=== PATIENT | male | born 1980 | race Caucasian/White ===

== ENCOUNTER 2017-05-06 16:26 | Emergency (ER) | payer OTHER ==
[~2017-05-06] VITALS: Ht 175.3 cm; Wt 103.7 kg
[~2017-05-06 16:26] MED LIST: GOODY'S EX-STR1 EACH PO; OXAYDO5 MG PO; PEN-VEE K,VEET500 MG PO; [UNRECOGNIZED DRUG - OTHER] NS
[2017-05-06] MEDS ORDERED: MOTRIN600 MG PO (17:53)
[2017-05-06 18:14] VITALS: BP 171/90
== END 2017-05-06 18:23 | disposition home or self-care (01) ==
LOC: EME 16:26
DX: S39.012A Strain of muscle, fascia and tendon of lower back, initial encounter (principal); V49.50XA Passenger injured in collision with unspecified motor vehicles in traffic accident, initial encounter; Y92.481 Parking lot as the place of occurrence of the external cause
CPT/HCPCS: 99281; 99284